=== PATIENT | male | born 1990 | race Two or more races ===

== ENCOUNTER 2018-08-01 03:39 | Inpatient (IN) | payer SELFPAY ==
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
--- NOTE | 2018-08-01 05:08 | RADIOLOGY REPORT (SQ) ---
Right knee three view on 08/01/2018 at 4:37 AM CLINICAL INDICATION: Injury, pain and swelling COMPARISON: None FINDINGS: There is an acute, comminuted, displaced and distracted patella fracture through the mid aspect of the patella with significant distraction of the main fracture fragments. There is adjacent soft tissue swelling. No other fracture is noted. Visualized joints are well aligned. IMPRESSION: Acute comminuted and displaced patellar fracture.
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
[2018-08-01] MEDS ORDERED: ONDANSETRON HCL INJ/PF 4 MG/2 ML SDV IV ONE (06:29)
[2018-08-01] MEDS ORDERED: MORPHINE SULFATE 10 MG/ML INJ IV ONE (06:29)
[2018-08-01 07:07] LABS: ABSOLUTE LYMPHOCYTES (AUTO) 1.5 10^3/uL (0.5-4.7); ABSOLUTE MONOCYTES (AUTO) 0.7 10^3/uL (0.1-1.4); BASOPHILS % (AUTO) 0.2 % (0-2); EOSINOPHILS % (AUTO) 0.1 % (0-6); HEMATOCRIT 45.5 % (37.9-51.0); HEMOGLOBIN 15.7 g/dL (13.5-17.0); LYMPHOCYTES % (AUTO) 10.3 % (13-45); MEAN CORPUSCULAR HEMOGLOBIN 31.2 pg (27.0-33.4); MEAN CORPUSCULAR HGB CONC 34.6 g/dL (32.0-36.0); MEAN CORPUSCULAR VOLUME 90 fl (80-97); MONOCYTES % (AUTO) 4.6 % (3-13); PLATELET COUNT 259 10^3/uL (150-450); RED BLOOD COUNT 5.05 10^6/uL (4.35-5.55); RED CELL DISTRIBUTION WIDTH 13.1 % (11.5-14.0); SEGMENTED NEUTROPHILS % (AUTO) 84.8 % (42-78); TOTAL CELLS COUNTED % (AUTO) 100 %; WHITE BLOOD COUNT 14.2 10^3/uL (4.0-10.5)
[2018-08-01 07:25] LABS: ANION GAP 12 (5-19); BLOOD UREA NITROGEN 9 mg/dL (7-20); CALCIUM 9.3 mg/dL (8.4-10.2); CARBON DIOXIDE 23 mmol/L (22-30); CHLORIDE 108 mmol/L (98-107); GLUCOSE 114 mg/dL (75-110); POTASSIUM 4.2 mmol/L (3.6-5.0); SODIUM 143.3 mmol/L (137-145)
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
[2018-08-01] MEDS ORDERED: ONDANSETRON 4 MG TAB.RAPDIS PO PRN (10:22)
[2018-08-01] MEDS: OXYCODONE-ACETAMINOPHEN 5-325 MG TABLET PO PRN ×2 (10:51→17:09)
[2018-08-01 11:22] LABS: ABSOLUTE EOSINOPHILS # (AUTO) 0.1 10^3/uL (0.0-0.6); ABSOLUTE LYMPHOCYTES (AUTO) 2.4 10^3/uL (0.5-4.7); ABSOLUTE NEUT (AUTO) 10.2 10^3/uL (1.7-8.2); BASOPHILS % (AUTO) 0.3 % (0-2); EOSINOPHILS % (AUTO) 0.4 % (0-6); HEMOGLOBIN 16.1 g/dL (13.5-17.0); LYMPHOCYTES % (AUTO) 17.5 % (13-45); MEAN CORPUSCULAR HEMOGLOBIN 30.6 pg (27.0-33.4); MEAN CORPUSCULAR HGB CONC 34.2 g/dL (32.0-36.0); MEAN CORPUSCULAR VOLUME 89 fl (80-97); MONOCYTES % (AUTO) 7.5 % (3-13); PLATELET COUNT 262 10^3/uL (150-450); RED BLOOD COUNT 5.26 10^6/uL (4.35-5.55); RED CELL DISTRIBUTION WIDTH 13.4 % (11.5-14.0); SEGMENTED NEUTROPHILS % (AUTO) 74.3 % (42-78); TOTAL CELLS COUNTED % (AUTO) 100 %; WHITE BLOOD COUNT 13.7 10^3/uL (4.0-10.5)
[2018-08-01 11:29] LABS: INTERNATIONAL RATION (INR) 0.93; PROTHROMBIN TIME 12.9 SEC (11.4-15.4)
[2018-08-01 11:30] LABS: PARTIAL THROMBOPLASTIN TIME 29.5 SEC (23.5-35.8)
[2018-08-01 11:44] LABS: ALANINE AMINOTRANSFERASE 92 U/L (21-72); ALBUMIN 4.5 g/dL (3.5-5.0); ALKALINE PHOSPHATASE 106 U/L (38-126); ANION GAP 14 (5-19); ASPARTATE AMINO TRANSFERASE 41 U/L (17-59); BILIRUBIN,DIRECT 0.3 mg/dL (0.0-0.4); BILIRUBIN,TOTAL 0.6 mg/dL (0.2-1.3); BLOOD UREA NITROGEN 8 mg/dL (7-20); CALCIUM 9.4 mg/dL (8.4-10.2); CARBON DIOXIDE 24 mmol/L (22-30); CHLORIDE 106 mmol/L (98-107); GLUCOSE 94 mg/dL (75-110); POTASSIUM 4.3 mmol/L (3.6-5.0); SODIUM 143.6 mmol/L (137-145); TOTAL PROTEIN 7.3 g/dL (6.3-8.2)
[2018-08-01] MEDS: IBUPROFEN 800 MG TABLET PO PRN ×2 (12:38→20:29)
[2018-08-02] MEDS ORDERED: RINGERS SOLUTION,LACTATED 1,000 ML IV PRN (00:01)
[2018-08-02] MEDS: MORPHINE SULFATE 10 MG/ML INJ IV PRN ×3 (00:21→06:44)
[2018-08-02] MEDS ORDERED: CEFAZOLIN 2 GM/D5W RTU 2 GM/50 ML RTUPB IV PRN (05:00)
[2018-08-02] MEDS ORDERED: TRANEXAMIC ACID INJ/PF 1,000 MG/10 ML SDV IV PRN (05:00)
[2018-08-02 05:35] LABS: HEMOGLOBIN 14.4 g/dL (13.5-17.0); MEAN CORPUSCULAR HEMOGLOBIN 31.1 pg (27.0-33.4); MEAN CORPUSCULAR HGB CONC 34.3 g/dL (32.0-36.0); MEAN CORPUSCULAR VOLUME 91 fl (80-97); PLATELET COUNT 224 10^3/uL (150-450); RED BLOOD COUNT 4.64 10^6/uL (4.35-5.55); RED CELL DISTRIBUTION WIDTH 13.2 % (11.5-14.0); WHITE BLOOD COUNT 9.9 10^3/uL (4.0-10.5)
[2018-08-02 05:43] LABS: INTERNATIONAL RATION (INR) 0.97; PARTIAL THROMBOPLASTIN TIME 30.7 SEC (23.5-35.8); PROTHROMBIN TIME 13.4 SEC (11.4-15.4)
[2018-08-02 06:01] LABS: ANION GAP 9 (5-19); BLOOD UREA NITROGEN 13 mg/dL (7-20); CALCIUM 9.6 mg/dL (8.4-10.2); CARBON DIOXIDE 27 mmol/L (22-30); CHLORIDE 103 mmol/L (98-107); GLUCOSE 95 mg/dL (75-110); POTASSIUM 4.3 mmol/L (3.6-5.0); SODIUM 138.6 mmol/L (137-145)
[2018-08-02] MEDS ORDERED: MIDAZOLAM 2 MG/2 ML INJ ONE (07:11)
[2018-08-02] MEDS ORDERED: DEXAMETHASONE SOD PHOSPHATE INJ 4 MG/1 ML VIAL ONE (07:11)
[2018-08-02] MEDS ORDERED: ONDANSETRON HCL INJ/PF 4 MG/2 ML SDV ONE (07:11)
[2018-08-02] MEDS ORDERED: FENTANYL CITRATE INJ/PF 100 MCG/2 ML AMPUL ONE (07:11)
[2018-08-02] MEDS ORDERED: ACETAMINOPHEN 1,000 MG/100 ML RTUPB IV ONE (07:12)
[2018-08-02] MEDS ORDERED: PROPOFOL INJ 200 MG/20 ML VIAL IV ONE (07:12)
[2018-08-02] MEDS ORDERED: LIDOCAINE 0.5% INJ-PF (5 MG/ML) 50 ML SDV ONE (07:13)
[2018-08-02] MEDS ORDERED: CEFAZOLIN INJ 1 GM VIAL ONE (08:14)
[2018-08-02] MEDS ORDERED: TRANEXAMIC ACID INJ/PF 1,000 MG/10 ML SDV IV ONE (08:14)
[2018-08-02] MEDS ORDERED: FENTANYL CITRATE INJ/PF 100 MCG/2 ML AMPUL IV PRN ×3 (09:24)
[2018-08-02] MEDS ORDERED: ONDANSETRON HCL INJ/PF 4 MG/2 ML SDV IV PRN (09:24)
[2018-08-02] MEDS ORDERED: MORPHINE SULFATE 10 MG/ML INJ IV PRN (09:24)
[2018-08-02] MEDS ORDERED: PROMETHAZINE HCL INJ 25 MG/1 ML VIAL IV PRN ×2 (09:24)
[2018-08-02] MEDS ORDERED: MEPERIDINE HCL/PF INJ 25 MG/1 ML DISP.SYRIN IV PRN (09:24)
[2018-08-02] MEDS ORDERED: DIPHENHYDRAMINE HCL 50 MG/ML VIAL IV PRN (09:24)
--- NOTE | 2018-08-02 09:49 | Operative Report ---
Operative Report DATE OF SURGERY: 08/02/18 PREOPERATIVE DIAGNOSIS: Right comminuted patella fracture OPERATION: Open reduction internal fixation right comminuted patella fracture SURGEON: ANA MARÍA SUAREZ ANESTHESIA: GA ESTIMATED BLOOD LOSS: Minimal PROCEDURE: With the patient supine on the operative table the lower extremities prepped and draped in sterile fashion. Limb is elevated for exsanguination tourniquet inflated 280 torr. Longitudinal incision was made midline overlying the patella. Sharp dissection was carried incision down to the surrounding hematoma. The hematoma was evacuated. The fracture anatomy is assessed. There is multiple small fragments that presumably got washed out with a hematoma. There is a large proximal fragment and then there is several small distal fragme nts. The anatomic problem is is that the proximal fragment has a transverse fracture in the distal fragment has a very oblique fracture so that there really is not a great way to align the fracture fragments. Decision is then made to use parallel wires in a [id number] construct maximizing articular congruity. 2 x 0.062 K wires were passed distally and then proximally. A [id number]-tc-[id number] is then performed using a FiberWire tape. X-rays of this demonstrate anatomic articular alignment and placing my index finger through the lateral retinaculum I can feel that the articular surface is very close to anatomic. This leaves a large bone defect anteriorly. The medial lateral retinaculum were closed with interrupted 5 FiberWire suture. The tourniquet is deflated. Hemostasis obtained with electrocautery. The wound is irrigated with bulb lavage. It is closed in layers using interrupted Vicryl followed by lois. A sterile compressive dressing is applied and the patient's return to the PACU in satisfactory condition.
--- NOTE | 2018-08-02 09:52 | Discharge Summary ---
Discharge Summary (SDC) - Discharge Final Diagnosis: Right patella fracture Date of Surgery: 08/02/18 Discharge Date: 08/02/18 Condition: Good Treatment or Instructions: Ambulation with crutches and a knee immobilizer. No active flexion of the left knee. Prescriptions: Oxycodone HCl/Acetaminophen [Percocet 5-325 mg Tablet] 1 tab PO Q6HP PRN #60 tablet PRN Reason: Discharge Diet: As Tolerated, Regular Respiratory Treatments at Home: Deep Breathing/Coughing Discharge Activity: Balance Activity w/Rest, No Driving, No tub bath Home Care Assistance: None Needed Report the Following to Your Physician Immediately: Shortness of Breath, Fever over 101 Degrees, Drainage-Foul Smelling
[2018-08-02] MEDS: FENTANYL CITRATE INJ/PF 100 MCG/2 ML AMPUL ONE ×2 (10:01→10:10)
[2018-08-02] MEDS: MORPHINE SULFATE 10 MG/ML INJ ONE ×2 (10:15→10:20)
[2018-08-02] MEDS ORDERED: HYDROMORPHONE HCL INJ/PF 2 MG/ML AMPULE ONE (10:24)
[2018-08-02] MEDS ORDERED: PROMETHAZINE HCL INJ 25 MG/1 ML VIAL ONE (10:41)
[2018-08-02] MEDS ORDERED: SUCCINYLCHOLINE CHLORIDE INJ 200 MG/10 ML VIAL ONE (10:56)
[2018-08-02] MEDS: OXYCODONE-ACETAMINOPHEN 5-325 MG TABLET PO PRN (12:02)
--- NOTE | 2018-08-02 12:47 | RADIOLOGY REPORT (SQ) ---
EXAM DESCRIPTION: NO CHG FLUORO; KNEE RIGHT 2 VIEWS COMPLETED DATE/TIME: 08/02/2018 10:01 am; 08/02/2018 10:02 am REASON FOR STUDY: ORIF RT KNEE ASST WITH FLUORO IN OR COMPARISON: None. FLUOROSCOPY TIME: 0 minutes 2 Images saved to PACS LIMITATIONS: None. PROCEDURE: ORIF patellar fracture. FINDINGS: Image to fluoro document the procedure. IMPRESSION: ORIF patellar fracture. Refer to operative note for further information. COMMENT: PQRS 6045F: Fluoroscopy time of the procedure is documented in the report. TECHNICAL DOCUMENTATION: JOB ID: [id number] [employer]- All Rights Reserved Reading location - IP/workstation name: [email or web address]
--- NOTE | 2018-08-02 12:47 | RADIOLOGY REPORT (SQ) ---
EXAM DESCRIPTION: NO CHG FLUORO; KNEE RIGHT 2 VIEWS COMPLETED DATE/TIME: 08/02/2018 10:01 am; 08/02/2018 10:02 am REASON FOR STUDY: ORIF RT KNEE ASST WITH FLUORO IN OR COMPARISON: None. FLUOROSCOPY TIME: 0 minutes 2 Images saved to PACS LIMITATIONS: None. PROCEDURE: ORIF patellar fracture. FINDINGS: Image to fluoro document the procedure. IMPRESSION: ORIF patellar fracture. Refer to operative note for further information. COMMENT: PQRS 6045F: Fluoroscopy time of the procedure is documented in the report. TECHNICAL DOCUMENTATION: JOB ID: [id number] [employer]- All Rights Reserved Reading location - IP/workstation name: [email or web address]
[2018-08-02] MEDS: IBUPROFEN 800 MG TABLET PO PRN (15:34)
[2018-08-02 15:36] VITALS: BP 149/84
== END 2018-08-02 16:36 | disposition home or self-care (01) | DRG 517 ==
LOC: ER 03:39 → EH 06:19 → 4N 13:47
PROVIDERS: ADMIT Orthopaedic Surgery; ATTEND Orthopaedic Surgery
PROC: 0QSD04Z Reposition Right Patella with Internal Fixation Device, Open Approach (ICD-10-PCS; principal; 2018-08-02 09:00)
DX: S82.041A Displaced comminuted fracture of right patella, initial encounter for closed fracture (principal); X58.XXXA Exposure to other specified factors, initial encounter; F10.129 Alcohol abuse with intoxication, unspecified
CPT/HCPCS: 01392; 36415; 70450; 72110; 72125; 80048; 80053; 85025; 85027; 85610; 85730; 99285; J0131; J0330; J0690; J1100; J1170; J2250; J2270; J2405; J2550; J2704; J3010; J3490; J7120; L1830